=== PATIENT | female | born 1990 | race African-American/Black ===

== ENCOUNTER 2016-08-26 08:59 | Emergency (ER) ==
[2016-08-26 09:08] VITALS: BP 153/79
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
== END 2016-08-26 10:13 | disposition home or self-care (01) ==
LOC: ED 08:59
DX: Z04.3 Encounter for examination and observation following other accident (principal); J45.909 Unspecified asthma, uncomplicated; M19.90 Unspecified osteoarthritis, unspecified site; F17.210 Nicotine dependence, cigarettes, uncomplicated; Z71.6 Tobacco abuse counseling; V49.40XA Driver injured in collision with unspecified motor vehicles in traffic accident, initial encounter
CPT/HCPCS: 99281